=== PATIENT | male | born 1965 | race Caucasian/White ===

== ENCOUNTER → 2020-06-07 | Outpatient (CLI) | payer MEDICARE, OTHER ==
[~2020-06-07] MED LIST: ALBUTEROL2.5 MG/3 M INH; AZELASTINE137 MCG/0.; CHANTIX1 EACH PO; FLONASE ALLER15.8 ML; GLUCOPHAGE500 MG PO; HYDROXYZINE HCL50 MG PO; LEVEMIR 10100 UNITS/ SQ; LIPITOR TAB 2020 MG PO; LISINOPRIL5 MG PO; MOBIC15 MG PO; NAPROXEN500 MG PO; NOVOLOG 10100 UNITS/ INJ; OMEPRAZOLE20 MG PO; PERCOCET 10-321 EACH PO; SINGULAIR10 MG PO; TRAMADOL HCL50 MG PO; VENTOLIN HFA 66.7 GM INH; WELLBUTRIN XL150 MG PO; XYZAL5 MG PO; ZANAFLEX 4 MG TA4 MG PO; ZYVOX600 MG PO
== END ==
LOC: EXRD 06-05 10:00
DX: R10.11 Right upper quadrant pain (principal); M79.89 Other specified soft tissue disorders; R19.09 Other intra-abdominal and pelvic swelling, mass and lump; R31.9 Hematuria, unspecified; I10 Essential (primary) hypertension; N28.9 Disorder of kidney and ureter, unspecified
CPT/HCPCS: 76705; 76775

== ENCOUNTER → 2020-06-16 | Outpatient (CLI) | payer MEDICARE, OTHER | LOC: RAD 12:51 | DX: Z01.818 Encounter for other preprocedural examination (principal); J84.9 Interstitial pulmonary disease, unspecified | CPT/HCPCS: 71046 ==

== ENCOUNTER → 2021-05-03 | Outpatient (CLI) | payer MEDICARE, OTHER | LOC: RAD 16:05 | DX: J45.909 Unspecified asthma, uncomplicated (principal); M54.9 Dorsalgia, unspecified; R05.9 Cough, unspecified | CPT/HCPCS: 71046 ==

== ENCOUNTER → 2021-11-26 | Outpatient (CLI) | payer MEDICARE, OTHER | LOC: EXRD 13:09 | DX: M54.50 Low back pain, unspecified (principal); M25.552 Pain in left hip; R10.9 Unspecified abdominal pain; M61.48 Other calcification of muscle, other site; M47.816 Spondylosis without myelopathy or radiculopathy, lumbar region | CPT/HCPCS: 72100; 73502; 74018 ==

== ENCOUNTER → 2021-12-19 | Outpatient (CLI) | payer MEDICARE, OTHER ==
[2021-12-19 13:24] LABS: HEMOGLOBIN 19.6 gm/dl (14.0-17.5); RED BLOOD COUNT 6.4 M/UL (4.20-5.50); WHITE BLOOD COUNT 9.1 K/UL (4.5-11.0)
== END ==
LOC: OPSV 12:19
PROVIDERS: Nurse Practitioner Family
DX: D75.1 Secondary polycythemia (principal)
CPT/HCPCS: 36415; 85025